=== PATIENT | female | born 1970 | race African-American/Black ===

== ENCOUNTER 2018-08-05 00:45 | Emergency (ER) | payer MEDICAID, OTHER ==
[~2018-08-05] VITALS: Ht 175.3 cm; Wt 79.0 kg
[~2018-08-05 00:45] MED LIST: AMIT25TA9 PO; FLUT1DIS3 IH; TOPA200 MT; ZIPR40CA2 MT
[2018-08-05 01:49] VITALS: BP 139/85
== END 2018-08-05 05:02 | disposition left against medical advice (07) ==
LOC: ER 00:45
DX: Z53.21 Procedure and treatment not carried out due to patient leaving prior to being seen by health care provider (principal)